=== PATIENT | male | born 1965 | race African-American/Black ===

== ENCOUNTER 2020-03-12 03:12 | Emergency (ER) | payer OTHER, BC ==
[~2020-03-12] VITALS: Ht 180.3 cm; Wt 90.7 kg
[~2020-03-12 03:12] MED LIST: ACET-8386 PO; AMLO10TA PO; FAMO-90 PO; FOLI1TAB19 PO; LISI10TA11 PO
[2020-03-12 03:26] VITALS: BP 171/121
--- NOTE | 2020-03-12 03:31 | NUR ---
AMBULATED TO BED 06 WITH STEADY GAIT.
--- NOTE | 2020-03-12 03:31 | NUR ---
BP 171/121. ERMD MADE AWARE
--- NOTE | 2020-03-12 03:38 | NUR ---
54 Y/O MALE PRESENTED TO ED C/O ABDOMINAL PAIN X 2300. PT STATES HE HAS HAD STOMACH ULCERS FOR 20 YEARS AND THEY PAIN COMES AND GOES BUT LAST NIGHT THE PAIN BECAME 10/10, BURNING UPPER ABDOMINAL / CHEST PAIN. OBSERVED DISTENDED STOMACH , PT STATES HE HAS HAD A DISTENDED STOMACH X 20 YEARS. PT DENIES N/V/D/F/SOB. PT BREATHING EVEN AND UNLABORED. A/O X4. VSS. PT RESTING IN BED , LOCKED AND IN LOWEST POSITION, HOB ELEVATED, SIDE RAIL X1. PT CONNECTED TO [employer] , PULSE OX AND BP CUFF. PMH: HTN, STOMACH ULCERS RX: BP MEDS - PT DOES NOT REMEMBER THE NAMES. PT STATES HE DID NOT TAKE HIS BP MEDS TODAY. NKA
--- NOTE | 2020-03-12 03:40 | NUR ---
Dr. Bucio examining patient.
[2020-03-12] MEDS ORDERED: DICYCLOMINE HCL LIQUID 20 MG, ALUMINUM HYD/MAG/SIMETHICONE 30 ML, LIDOCAINE VISCOUS 2% ... PO ONE ×3 (03:45)
[2020-03-12] MEDS ORDERED: FAMOTIDINE 20 MG TAB PO ONE (03:45)
[2020-03-12] MEDS ORDERED: ALUMINUM HYD/MAG/SIMETHICONE 30 ML UDC ONE (03:55)
[2020-03-12] MEDS ORDERED: LIDOCAINE VISCOUS 2% 20 ML UDC ONE (03:55)
[2020-03-12] MEDS ORDERED: DICYCLOMINE HCL LIQUID 10 MG/5 ML UDC ONE (03:55)
--- NOTE | 2020-03-12 03:57 | NUR ---
ATTEMPTED TO PERFORM EKG, PT REFUSED TO SIT ON BED OR LAY STILL, STATING HE WAS HAVING A PANIC ATTACK AND DID NOT WANT TO LIE IN BED TO PERFORM PROCEDURE
[2020-03-12 04:01] LABS: BASOPHILS # (AUTO) 0.2 K/uL (0.00-0.22); BASOPHILS % (AUTO) 1.1 % (0.0-2.0); EOSINOPHILS % (AUTO) 0.2 % (0.0-4.0); HEMATOCRIT 51.1 % (36-52); HEMOGLOBIN 17.1 g/dL (12.0-18.0); LYMPHOCYTES # (AUTO) 1.7 K/uL (2.0-11.5); LYMPHOCYTES % (AUTO) 8.9 % (20.5-51.1); MEAN CORPUSCULAR HEMOGLOBIN 30 pg (27-31); MEAN CORPUSCULAR HGB CONC 33 g/dL (33-37); MEAN CORPUSCULAR VOLUME 88.6 fL (80-94); MONOCYTES # (AUTO) 0.8 K/uL (0.8-1.0); NEUTROPHILS # (AUTO) 16.5 K/uL (1.8-7.7); NEUTROPHILS % (AUTO) 85.8 % (42.2-75.2); PLATELET COUNT (AUTO) 302 K/uL (140-450); RED BLOOD CELL COUNT(AUTO) 5.77 MIL/uL (4.20-6.10); RED CELL DISTRIBUTION WIDTH 14.9 % (11.6-13.7); WHITE BLOOD COUNT (AUTO) 19.2 K/uL (4.8-10.8)
[2020-03-12] MEDS ORDERED: DIAZEPAM 5 MG TAB ONE (04:02)
[2020-03-12 04:03] LABS: APPEARANCE,URINE CLEAR (CLEAR); BILIRUBIN,URINE NEGATIVE (NEGATIVE); BLOOD, URINE TRACE-I (NEGATIVE); COLOR,URINE YELLOW (YELLOW); LEUKOCYTE ESTERASE ,URINE NEGATIVE (NEGATIVE); NITRITE, URINE NEGATIVE (NEGATIVE); PH,URINE 5.5 (5.0-9.0); UGLUCOSE NEGATIVE (NEGATIVE)
--- NOTE | 2020-03-12 04:03 | NUR ---
PT STATES FEELING OF ANXIETY. CESAR ROJAS MADE AWARE. PER DR. ROJAS ADMINISTER PO VALIUM 5MG.
[2020-03-12] MEDS ORDERED: DIAZEPAM 5 MG TAB PO ONE (04:05)
[2020-03-12 04:07] LABS: RBC,URINE 0-5 /HPF (0-5); WBC,URINE 0 /HPF (0-5)
[2020-03-12 04:25] LABS: ALBUMIN 4.3 g/dL (3.4-5.0); ANION GAP 18.3 (8-16); CARBON DIOXIDE 24.7 mmol/L (21-32); CREATININE 1.5 mg/dL (0.6-1.3); TOTAL BILIRUBIN 0.6 mg/dL (0.0-1.0)
--- NOTE | 2020-03-12 04:30 | NUR ---
EKG PERFORMED AT BEDSIDE
--- NOTE | 2020-03-12 05:13 | NUR ---
PT RESTING IN BED , LOCKED AND IN LOWEST POSITION, AROUSABLE BY STIMULATION, HOB ELEVATED , SIDE RAIL X1.
[2020-03-12] MEDS ORDERED: MAG SULF 2000 MG/WATER PREMIX 50 ML IV ONE (05:20)
--- NOTE | 2020-03-12 05:38 | NUR ---
PT RETURN FROM CT
--- NOTE | 2020-03-12 05:45 | NUR ---
PER CESAR ROJAS , RATIONALE FOR MAG SULFATE ADMINISTRATION IS D/T PROLONGED QT. PER DR. ROJAS HE WANTS ADMINISTRATION TO BE 150 ML/HR , 20 MIN TOTAL FOR MED ADMINISTRATION.
--- NOTE | 2020-03-12 06:00 | NUR ---
PT BP AT 172/111 WITH HR OF 104. CESAR ROJAS NOTIFIED. NO NEW ORDERS RECEIVED AT THIS TIME. WILL CONTINUE TO MONITOR.
--- NOTE | 2020-03-12 06:43 | NUR ---
PT SLEEPING IN BED, LOCKED AND IN LOWEST POSITION, AROUSABLE TO VERBAL STIMULATION, HOB ELEVATED, SIDE RAIL X1, VSS.
[2020-03-12] MEDS ORDERED: ALUMINUM HYD/MAG/SIMETHICONE 30 ML UDC PO ONE (06:50)
[2020-03-12 07:07] VITALS: BP 172/111
--- NOTE | 2020-03-12 07:07 | NUR ---
Patient discharged with v/s stable. Written and verbal after care instructions given and explained. Patient alert, oriented and verbalized understanding of instructions. Ambulatory with steady gait. All questions addressed prior to discharge. ID band removed. Patient advised to follow up with PMD. Rx of MAALOX AND PEPCID given. Patient educated on indication of medication including possible reaction and side effects. Opportunity to ask questions provided and answered.
== END 2020-03-12 07:07 | disposition home or self-care (01) ==
LOC: MED 03:12
DX: K59.00 Constipation, unspecified (principal); I10 Essential (primary) hypertension; K86.9 Disease of pancreas, unspecified; K37 Unspecified appendicitis; K81.9 Cholecystitis, unspecified; K25.9 Gastric ulcer, unspecified as acute or chronic, without hemorrhage or perforation
CPT/HCPCS: 36415; 71045; 74150; 80053; 81001; 83690; 84484; 85025; 93005; 99285; J3475; Q0092; 49083; 96365